=== PATIENT | female | born 1975 | race Caucasian/White ===

== ENCOUNTER 2018-03-03 05:45 | Day surgery (SDC) | payer OTHER ==
--- NOTE | 2018-02-28 18:20 | GHP ---
DATE OF ADMISSION: 03/03/2018 PREOPERATIVE DIAGNOSIS: 1. Bilateral complex ovarian cysts, suspected dermoids. 2. Desires permanent sterilization. SURGERY TO BE PERFORMED: Laparoscopic bilateral ovarian cystectomy and bilateral salpingectomy. Surgeon will be Dr. Polly Flannery, campaign assistant will be Dr. Michelle Kearney DO. INDICATIONS FOR PROCEDURE: Halle is a 43-year-old 0, who has a last menstrual period of 02/19. She was evaluated in the emergency department in January [address] scan because she palumbo d nephrolithiasis. On the CT scan they incidentally found a 5 cm right ovarian suspected teratoma, a nd a 2 cm teratoma on the left. She came to see me for evaluation. We discussed these ovarian cysts and I recommend removal. Since she has had that CT in the last month and a half she has started to have increasing pain in her right side, fullness and pelvic pressure that is constant and getting wor se. She also desires never to conceive, never to have children. She and her are in agreemen t, and she would like to stop taking oral contraceptive pills, so she would like salpingectomy at the time of surgery, and I am in agreement with that. The patient had an ultrasound to also evaluate he r pelvic anatomy. Her uterus is normal. Endometrium was normal. A 0.31 cm right ovary is difficult to see, any normal ovary. A large solid irregular shaped mass likely dermoid was seen that is 5.4 x 3.5 x 4.4 cm. Left ovary had normal areas and then a solid echogenic mass in the left ovary that wa s 1.1 x 1.3 x 1.5 cm. There was no free fluid. PAST MEDICAL HISTORY: Patient's only past medical history is a remote history of asthma. She uses a n albuterol inhaler rarely with colds and exercise. PAST SURGICAL HISTORY: Her only past surgical history is wisdom tooth extraction. ALLERGIES: She has no known drug allergies. MEDICATIONS: Include Lo Loestrin control pills, and a Ventolin inhaler p.r.n. GYNECOLOGICAL HISTORY: Normal menstrual triad. Does not wish to conceive. Has been on contro l pills for many years. No history of abnormal Pap. Most recent Pap and HPV were negative in 2016. No history of STDs. SOCIAL HISTORY: She is . She works at a [employer]. She denies [employer]. Alcohol, she drinks 1-2 glasses a week. No drug use. 1-2 cups of caffeine a week. FAMILY HISTORY: Significant for a mom and a sister who had breast cancer in their late 60s, and joshua saeed who of pancreatic cancer. REVIEW OF SYSTEMS: Negative except for pertinent positives as above in HPI. OBJECTIVE: VITAL SIGNS: Blood pressure 126/78, weight is 154 pounds. GENERAL: She is a well-devel oped, well-nourished white female in no acute distress. LUNGS: Clear to auscultation bilaterally. H EART: Regular rate and rhythm. No murmur. ABDOMEN: Soft, has mild tenderness on the right lower q uadrant to deep palpation. No rebound or guarding. PELVIC EXAM: Normal external genitalia. Normal nulliparous cervix. Uterus is anteverted, anteflexed, mobile, and there is a palpable fullness on t he right adnexa. 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 We will do a bilateral ovarian cystectomy, possible right oophorectomy if we are unabl e to preserve normal ovarian tissue and bilateral salpingectomy for sterilization. Patient was conse nted for the procedure today. She understands the risks and benefits. The risks include bleeding, i nfection, damage to organs, uterus, tubes, ovaries, bowel, bladder, nerves, blood vessels, ureters, n eed for open procedure, need for additional procedures. She understood these risks and benefits and agreed to proceed. /[id number]/MODL
[2018-03-03] MEDS ORDERED: LR 1,000 ML IV ONE (06:23)
[2018-03-03] MEDS ORDERED: ceFAZolin 2 GM/DEXTROSE 100 ML IV ONE (06:23)
[2018-03-03] MEDS ORDERED: LIDOCAINE 1% 2 ML INJ ID PRN (06:23)
[2018-03-03] MEDS ORDERED: SILVER NITRATE APPLICATOR 1 APPL TP ONE (06:34)
[2018-03-03] MEDS ORDERED: BUPIVACAINE/EPI 0.5% 30 ML SDV ONE (06:34)
[2018-03-03] MEDS ORDERED: MIDAZOLAM 2 MG/2 ML VIAL IVP ONE (07:10)
[2018-03-03] MEDS ORDERED: SCOPOLAMINE HYDROBROMIDE 1 MG/3 DAYS PATCH TD SCH (07:15)
--- NOTE | 2018-03-03 07:15 | PDANEPAE ---
ANE History of Present Illness Lap BL BSO ANE Past Medical History - Cardiovascular History Hx Hypertension: No Hx Arrhythmias: No Hx Chest Pain: No Hx Coronary Artery / Peripheral Vascular Disease: No Hx CHF / Valvular Disease: No Hx Palpitations: No - Pulmonary History Hx COPD: No Hx Asthma/Reactive Airway Disease: Yes Hx Recent Upper Respiratory Infection: No Hx Oxygen in Use at Home: No Hx Sleep Apnea: No Sleep Apnea Screening Result - Last Documented: Negative Pulmonary History Comment: MILD ALLERGY INDUCED ASTHMA - Neurologic History Hx Cerebrovascular Accident: No Hx Seizures: No Hx Dementia: No - Endocrine History Hx Diabetes: No Hypothyroid: No Hyperthyroid: No Obesity: no - Renal History Hx Renal Disorders: Yes Renal History Comment: KIDNEY STONES CURRENTLY - Liver History Hx Hepatic Disorders: No - Neurological & Psychiatric Hx Hx Neurological and Psychiatric Disorders: No - Cancer History Hx Cancer: No - Congenital Disorder History Hx Congenital Disorders: No - GI History GERD: no Hx Gastrointestinal Disorders: Yes Gastrointestinal History Comment: IBS - Chronic Pain History Chronic Pain: No - Surgical History Prior Surgeries: WISDOM TOOTH EXTRACTION ANE Review of Systems Review of Systems: - Exercise capacity METS (RN): 6 METS ANE Patient History - Allergies Allergies/Adverse Reactions: apple Allergy (Verified 03/03/18 06:44) - Home Medications Home medications: home medication list seen and reviewed Home Medications: Loestrin Fe 1-20 Tablet 02/05/18 [Last Taken 03/02/18] - NPO status NPO Since - Liquids (Date): 03/03/18 NPO Since - Liquids (Time): 04:30 NPO Since - Solids (Date): 03/02/17 NPO Since - Solids (Time): 20:30 - Anes Hx Anes Hx: no prior problems - Smoking Hx Smoking Status: Never smoked Marijuana use: No - Alcohol Use Alcohol Use: Occasionally - Family Anes Hx Family Anes Hx: none Family Hx Anesthesia Complications: NA ANE Labs/Vital Signs - Vital Signs Blood Pressure: 128/75 Heart Rate: 82 Respiratory Rate: 18 O2 Sat (%): 96 Height: 165.1 cm Weight: 68.946 kg ANE Physical Exam - Airway Neck exam: FROM Mallampati Score: Class 1 Mouth exam: normal dental/mouth exam - Pulmonary Pulmonary: no respiratory distress, no rales or rhonchi - Cardiovascular Cardiovascular: regular rate and rhythym, no murmur, rub, or gallop - ASA Status ASA Status: I ANE Anesthesia Plan Anesthesia Plan: general endotracheal anesthesia
--- NOTE | 2018-03-03 07:18 | PDHPUP ---
History & Physical Update H&P update statement: This history and physical update is based on an assessment of the patient which was completed after admission or registration (within 24 hours), but prior to the surgery/procedure. H&P update: H&P reviewed & patient examined, no change in patient's condition since H&P completed
[2018-03-03] MEDS ORDERED: fentaNYL 250 MCG/5 ML INJ ONE (07:24)
[2018-03-03] MEDS ORDERED: PROPOFOL/EMULSION 500 MG/50 ML BOTTLE IV ONE ×2 (07:24→07:25)
[2018-03-03] MEDS ORDERED: ROCURONIUM 100 MG/10 ML VIAL ONE (07:25)
[2018-03-03] MEDS ORDERED: GLYCOPYRROLATE 0.2 MG/1 ML VIAL ONE (07:25)
[2018-03-03] MEDS ORDERED: DEXAMETHASONE 4 MG/ML VIAL ONE ×2 (07:25→09:03)
[2018-03-03] MEDS ORDERED: PROMETHAZINE HCL 25 MG/ML INJ IVP PRN (08:57)
[2018-03-03] MEDS ORDERED: ONDANSETRON 4 MG/2 ML VIAL IVP PRN (08:57)
[2018-03-03] MEDS ORDERED: MEPERIDINE 25 MG/0.5 ML AMP IVP PRN (08:57)
[2018-03-03] MEDS ORDERED: HYDROCODONE/APAP 5/325 TAB PO PRN (08:57)
[2018-03-03] MEDS ORDERED: oxyCODONE IR 5 MG TAB PO PRN (08:57)
[2018-03-03] MEDS ORDERED: NALOXONE HCL 0.4 MG/ML INJ IVP PRN (08:57)
[2018-03-03] MEDS ORDERED: ALBUTEROL 3 ML DEYVIAL IH PRN (08:57)
[2018-03-03] MEDS ORDERED: ACETAMINOPHEN 500 MG TAB PO PRN (08:57)
[2018-03-03] MEDS ORDERED: ONDANSETRON 4 MG/2 ML VIAL ONE (09:04)
[2018-03-03] MEDS ORDERED: SUGAMMADEX SODIUM 200 MG/2 ML VIAL IVP ONE (09:04)
[2018-03-03] MEDS ORDERED: IBUPROFEN 200 MG TAB PO PRN (09:22)
--- NOTE | 2018-03-03 09:25 | POSTOPPROG ---
Post Op Note Date of Operation: 03/03/18 Surgeon: Polly Flannery Churn Driller: Dr. Michelle Kearney Anesthesiologist: Dr. Catalina Leon Anesthesia: GET(General Endotracheal) Pre-op Diagnosis: B complex ovarian cysts, desires sterilization Post-op Diagnosis: same Procedure: Laparoscopic Bilateral cystectomy, bilateral salpingectomy Findings: complex ovarian cysts, extensive pelvic adhesions Inf/Abcess present in the surg proc area at time of surgery?: No Depth: Organ Space EBL: Minimal Total fluids administered: 1500 Complications: none Specimen(s): bilateral ovarian cysts, bilateral fallopian tubes
[2018-03-03] MEDS ORDERED: fentaNYL 100 MCG/2 ML INJ ONE (09:28)
[2018-03-03] MEDS ORDERED: HYDROmorphONE/DILAUDID 2 MG/ML INJ ONE (09:28)
[2018-03-03] MEDS: fentaNYL 100 MCG/2 ML INJ IVP PRN ×2 (09:29→09:44)
[2018-03-03] MEDS: HYDROmorphONE/DILAUDID 2 MG/ML INJ IVP PRN ×2 (09:34→09:42)
[2018-03-03] MEDS ORDERED: HYDROCODONE/APAP 5/325 TAB ONE (10:28)
--- NOTE | 2018-03-03 10:48 | GOP ---
DATE OF OPERATION: 03/03/2018 SURGEON: Polly Flannery MD ONCOL[employer]Y TRANSPLANT NETWORK MANAGER: Michelle Kearney DO. ANESTHESIA: General anesthesia. ANESTHESIOLOGIST: Dr. Catalina Leon. PREOPERATIVE DIAGNOSIS: 1. Bilateral complex ovarian cysts. 2. Desires sterilization. POSTOPERATIVE DIAGNOSIS: PROCEDURE PERFORMED: Laparoscopic bilateral cystectomy and bilateral salpingectomy. FINDINGS: SPECIMENS: Bilateral ovarian dermoids and bilateral fallopian tubes. ESTIMATED BLOOD LOSS: For the procedure was less than 10 cc. DESCRIPTION OF PROCEDURE: Patient was taken to the operating room where she was placed under general anesthesia without difficulty. She was prepped and draped in the dorsal lithotomy position and a Solis catheter was placed in her bladder. After adequate anesthesia was assured and a WHO time-out was performed an open-sided speculum was placed in the vagina, and a single-tooth tenaculum was used to grasp the anterior lip of the cervix. The acorn uterine manipulator was gently advanced from the cervix and attached to the tenaculum. Attention was then turned to the abdominal portion of the procedure after injection of lidocaine. A 5 mm skin incision was made with a scalpel and with direct visualization, a 5 mm atraumatic trocar was placed with the 0 scope until the fascia was entered bluntly. Pneumoperitoneum was then created with carbon dioxide gas. The patient was placed in Trendelenburg and inspection of the pelvic anatomy was performed. With transillumination on the right lower quadrant and injection of Marcaine a 5 mm skin incision was placed in the right lower quadrant and under direct visualization an atraumatic 5 mm trocar was placed in the right lower quadrant and a 10 mm trocar was placed in the left. Inspection of the pelvis revealed a normal uterus with bilateral enlarged ovaries that were adherent to the cul-de-sac with extensive scar tissue obliterating the cul-de-sac and involving the lower sigmoid. With careful blunt and sharp dissection we were able to isolate the right ovary and deflect superiorly for manipulation. With the right ovary deflected away from the pelvis we used the ligature monopolar device to make an incision in the ovarian cortex and sebaceous as well as fluid material were extruded from this incision. We were then able to identify the ovarian cortex separate from the ovarian cyst wall and with blunt and sharp dissection, we were able to tease the cyst wall from the normal ovary. This was performed with the LigaSure, and cautery assured hemostasis. The ovarian cyst capsule was then completely removed from the normal ovarian cortex and placed in the posterior cul-de-sac. The right fallopian tube was then grasped at the fimbriated end and the LigaSure was used to cauterize and cut the fallopian tube along the mesosalpinx to the cornual region of the uterus and that was removed directly through the 10 mm port. Inspection of the remaining ovarian cortex revealed good hemostasis after cautery and copious irrigation. The left ovary was also adherent into the cul-de-sac with the colon involved in the adhesions. This was gently teased away as well to deflect the left ovary superiorly. With careful inspection we were able to find the location of the ovarian cyst and again with the LigaSure, cauterized and made an incision with monopolar and identified the liquid sebaceous material and hair from the dermoid cyst and with careful manipulation, blunt and sharp dissection removed the cyst wall from the ovarian cortex. This was removed in pieces and obvious area of solid cyst was also removed directly from the 10 mm port. The LigaSure assured hemostasis and good copious irrigation. The large right ovarian cyst capsule was placed in an EndoCatch bag and removed directly through the 10 mm port. Again, inspection of the pelvis revealed normal ureters peristalsing bilaterally. Good blood supply to both remaining ovarian cortex and good hemostasis. The fascial incision was closed with 0 Vicryl. Pneumoperitoneum was allowed to escape. All the trocars were removed and the skin was closed with 4-0 Monocryl. The tenaculum and the uterine manipulator removed and also good hemostasis was assured at the cervix. The patient tolerated the procedure well. Sponge, lap, needle, and instrument counts were correct x2. Patient went to the recovery room in good condition. The left fallopian tube was grasped at the fimbriated end and cauterized and cut and removed with the LigaSure as well. INDICATION FOR PROCEDURE: The patient is a 43-year-old 0 with a last menstrual period of 02/19/2018. She was evaluated in the emergency department in January 2018 because of nephrolithiasis. She had a CT scan that instantly found a 5 cm right ovarian suspected teratoma on the right ovary and a 2 mm teratoma on the left ovary. She came to see me for evaluation and after a pelvic exam and really discussing symptoms she has been having pelvic pressure, aching and pain in that right adnexal space. Ultrasound revealed that her uterus was normal. Endometrium was normal. The right ovary showed a solid irregular-shaped mass, 5.4 x 3.5 x cm, difficult to see normal ovarian tissue. Left ovary had normal areas and then a solid echogenic mass in the left ovary that was 1.1 x 1.3 x 1.5 cm. No free fluid. The patient is nulliparous and does not desire to have children, her and her partner are in agreement with this and she would like to have a salpingectomy at the time of surgery for permanent sterilization. The patient was consented for the procedure. She understood the risks and benefits, the risks including bleeding , infection, damage to organs, uterus, tubes, ovaries, bowel, bladder, nerves, blood vessels, ureters, need for open procedure, need for additional procedures. She understood these risks and benefits and agreed to proceed. FLUID REPLACEMENT: 1400 cc. URINE OUTPUT: 200 cc. /[id number]/MODL MTDD
--- NOTE | 2018-03-03 10:54 | POSTANESTH ---
Post Anesthetic Evaluation Cardiovascular Status: Normal, Stable Respiratory Status: Normal, Stable Level of Consciousness/Mental Status: Can Participate in Eval Pain Control: Adequate, Prn Tx Ordered Nausea/Vomiting Control: Adequate, Prn Tx Ordered Complications Possibly Related to Anesthesia: None Noted
[2018-03-03 11:23] VITALS: BP 128/71
[2018-03-06] MEDS ORDERED: PATCH REMOVAL 1 EA PATCH TD SCH (07:11)
== END 2018-03-03 11:20 | disposition home or self-care (01) ==
LOC: FSGY 05:45
PROVIDERS: ATTEND Obstetrics & Gynecology
PROC: 0UB28ZX Excision of Bilateral Ovaries, Via Natural or Artificial Opening Endoscopic, Diagnostic (ICD-10-PCS; principal; 2018-03-03 07:15)
PROC: 0UT7FZZ Resection of Bilateral Fallopian Tubes, Via Natural or Artificial Opening With Percutaneous Endoscopic Assistance (ICD-10-PCS; principal; 2018-03-03 07:15)
DX: N83.201 Unspecified ovarian cyst, right side (principal); N83.202 Unspecified ovarian cyst, left side; Z30.2 Encounter for sterilization; Z80.3 Family history of malignant neoplasm of breast; N20.0 Calculus of kidney
CPT/HCPCS: J0690; J1100; J1170; J2250; J2405; J2704; J3010